=== PATIENT | female | born 1965 | race Asian ===

== ENCOUNTER → 2017-07-30 | Outpatient (CLI) | payer BC | LOC: MC.RAD 09:33 | DX: Z12.31 Encounter for screening mammogram for malignant neoplasm of breast (principal) ==

== ENCOUNTER → 2018-10-18 | Outpatient (CLI) | payer BC | LOC: MC.RAD 11:30 | DX: Z12.31 Encounter for screening mammogram for malignant neoplasm of breast (principal); N63.11 Unspecified lump in the right breast, upper outer quadrant ==

== ENCOUNTER → 2018-10-21 | Outpatient (CLI) | payer BC | LOC: MC.RAD 12:42 | DX: N63.11 Unspecified lump in the right breast, upper outer quadrant (principal) ==

== ENCOUNTER → 2019-04-25 | Outpatient (CLI) | payer BC | LOC: MC.RAD 09:00 | DX: N63.11 Unspecified lump in the right breast, upper outer quadrant (principal) | CPT/HCPCS: G0279 ==

== ENCOUNTER → 2019-10-27 | Outpatient (CLI) | payer BC | LOC: MC.RAD 09:24 | DX: N64.9 Disorder of breast, unspecified (principal) | CPT/HCPCS: G0279 ==